=== PATIENT | female | born 1985 | race Hispanic/Latino ===

== ENCOUNTER 2020-04-03 22:27 | Emergency (ER) | payer SELFPAY ==
[2020-04-03] MEDS ORDERED: SOLU-MEDROL 40MG VIAL ONE (22:59)
[2020-04-03] MEDS ORDERED: DiphenhydrAMINE HCL 50 MG/ML VIAL ONE (23:00)
[2020-04-03] MEDS ORDERED: AMOX/CLAV 500/125MG TAB PO ONE (23:00)
[2020-04-03] MEDS ORDERED: FAMOTIDINE 20MG TAB ONE (23:00)
[2020-04-03] MEDS ORDERED: NEOMYCIN/POLYMYXIN/HC OTIC SUSP 10ML BOTTLE ONE (23:01)
== END 2020-04-03 23:42 | disposition home or self-care (01) ==
LOC: EDH 22:27
DX: T78.3XXA Angioneurotic edema, initial encounter (principal); H66.92 Otitis media, unspecified, left ear; H60.92 Unspecified otitis externa, left ear
CPT/HCPCS: 96372 ×2; 99284; J1200; J2920